=== PATIENT | female | born 1965 | race Caucasian/White ===

== ENCOUNTER 2022-09-26 12:21 | Emergency (ER) | payer OTHER ==
[2022-09-26 12:33] VITALS: BMI 31.4
[2022-09-26 12:46] VITALS: RESP 20
[2022-09-26] MEDS ORDERED: SODIUM CHLORIDE 0.9% 500 ML INFUS.BAG IV ONE (13:20)
[2022-09-26] MEDS ORDERED: diphenhydrAMINE HCL 25 MG CAPSULE (FP) PO ONE ×2 (13:20→13:30)
[2022-09-26 14:51] VITALS: BP 139/63; PULSE 84; TEMP 99
== END 2022-09-26 14:54 | disposition home or self-care (01) ==
LOC: JER 12:21
DX: R21 Rash and other nonspecific skin eruption (principal)
CPT/HCPCS: 93005; 93010; 99283-25